=== PATIENT | male | born 1940 | race Caucasian/White ===

== ENCOUNTER 2024-12-16 07:31 | Emergency (ER) | payer MEDICARE, SELFPAY ==
[2024-12-16] VITALS (16 sets, daily range): BP systolic 132–184; BP diastolic 85–106; PULSE 90–118; RESP 11–23; TEMP 36.7–37; O2SAT 93–96; BMI 21.9
--- NOTE | 2024-12-16 07:35 | ECG_ITS ---
APPROVED REPORT Exam: Resting ECG HR:104 bpm ECG Measurements Heart Rate 104 AXES IN 168 P 34 QRSd 81 QRS 2 QT 328 T 4 QTc 388 Conclusion SINUS TACHYCARDIA ABNORMAL RHYTHM ECG UNCONFIRMED REPORT Electronically signed by : FLORENTIN VALVERDE, 12/17/2024 02:23:58
--- NOTE | 2024-12-16 07:45 | PC.NURSE ---
Dr Núñez at bedside
--- NOTE | 2024-12-16 07:53 | ED_ITS ---
Discharge Plan Disposition Chief Complaint: Shortness of Breath/Dyspnea Prescriptions Prescriptions: No Action ondansetron HCl 4 mg tablet 4 mg PO Q6H omeprazole 40 mg capsule,delayed release(DR/EC) 40 mg PO DAILY sennosides [Black-Draught Lax-Senna] 8.6 mg tablet 8.6 mg PO DAILY hydromorphone 2 mg tablet 2 mg PO Q6H Qty: 60 0RF lorazepam 0.5 mg tablet 0.5 mg PO Q6H PRN (Reason: anxiety) Qty: 60 5RF amlodipine 5 mg tablet 5 mg PO DAILY dexamethasone 4 mg tablet 4 mg PO Q6H Referrals Follow up/Referrals: Vinnie Vilchis MD [Primary Care Provider] - See instructions Print Language Print Language: Kiswahili Discharge ED Provider: Johnnie Núñez General Adult HPI General Chief complaint: Shortness of Breath/Dyspnea Stated complaint: SOA Time Seen by Provider: 12/16/24 07:41 History of Present Illness HPI narrative: Andrew Lawson is a 84-year-old male with past medical history of 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 Onset was acute, occurring this morning. Per nursing report patient is normally conversational at bedside, they took him his medication with a cup of water and when they came back 5 minutes later he was wheezing causing him to become concerned and sent here for continued evaluation. No other acute complaints at this time. Upon conversing with the patient he has garbled speech, asking him if his tongue is swollen he states yes . When asked for how long he is unable to answer so when asked for a few days he nods yes. He is intermittently confused and not answering my questions and no other history is able to be obtained at this time. Please note that above description of symptoms, in this electronic medical record under categorization of recalled from ER triage doctor by RN are reflective of an initial nursing assessment, however, is not reflective of my full history and physical exam that was personally taken and clarified. Consequentially, this preceding description of symptoms, which may include the patient's categorized chief complaint in the EMR, do not reflect my personal clinical impression, and the ultimate description of history of present illness and patient stated complaints should be deferred to this section of the note. Unless stated otherwise or congruent with this section of the note, additional signs, symptoms, or incongruence should be interpreted as inaccurate with my clinical impression. Related Data Home Medications ?Medication ?Instructions ?Recorded ?Confirmed omeprazole 40 mg capsule,delayed 40 mg PO DAILY 11/30/24 12/16/24 release ondansetron HCl 4 mg tablet 4 mg PO Q6H 11/30/24 12/16/24 sennosides 8.6 mg tablet 8.6 mg PO DAILY 11/30/24 12/16/24 (Black-Draught Lax-Senna) amlodipine 5 mg tablet 5 mg PO DAILY 12/16/24 12/16/24 dexamethasone 4 mg tablet 4 mg PO Q6H 12/16/24 12/16/24 Previous Rx's ?Medication ?Instructions ?Recorded hydromorphone 2 mg tablet 2 mg PO Q6H #60 tabs 11/30/24 lorazepam 0.5 mg tablet 0.5 mg PO Q6H PRN anxiety #60 tabs 11/30/24 Allergies Allergy/AdvReac Type Severity Reaction Status Date / Time No Known Allergies Allergy Verified 12/02/24 14:50 [facility] Disclaimer: The information contained in this section may have been updated after the patient was seen, as this information can be updated by other users. 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, stage 3b Tubulo-interstitial nephritis, not specified as acute or chronic Other specified noninfective gastroenteritis and colitis Essential (primary) hypertension Cerebral edema Encephalopathy, unspecified Hyperlipidemia, unspecified Malignant neoplasm of overlapping sites of brain Malignant melanoma of skin, unspecified Social History Smoking Status: Never smoker alcohol intake: never current occupational status: previously employed Travel in the last 8 weeks: None Other Medical History Have you received the Pneumonia Vaccine: No (unknown) ROS Obtained: Yes Systems reviewed as appropriate & no additional complaints except as documented Physical Exam General General appearance: other Comment: Arousable to voice Head Head exam: atraumatic and normocephalic Eye Eye exam: Present PERRL ENT ENT exam: Present other (Tongue occupies majority of the mouth and is protruding through the central incisors. No brawny floor the mouth. Mild trismus. [place] edema and bulging between the chin and sternal notch) Neck Neck exam: Present normal inspection Chest Chest inspection: Present normal inspection and symmetric chest wall rise Respiratory Respiratory exam: Present normal lung sounds bilaterally; Absent respiratory distress (Mild tachypnea) or wheezes Cardiovascular Cardiovascular exam: Present normal rhythm and tachycardia Abdominal Exam Abdominal exam: Present soft; Absent tenderness Extremities Exam Extremities exam: Present normal inspection Neurological Exam Neurological exam: Present other (Eyes intermittently open and rousable to voice, intermittently confused, spontaneously moving all extremities) Psychiatric Psychiatric exam: Present other (Delayed answering) Skin Skin exam: Present warm and dry Medical Decision Making Medical Records Screening: Per USPSTF and CDC recommendations, given the prevalence of disease in our region, it is our hospital?s policy to screen for HIV and viral Hepatitis for all patients aged 18 and over and those with ongoing risk factors. Walter Inquiry Pt receiving controlled substance: No Vital Signs: 12/16/24 07:59 12/16/24 08:00 12/16/24 08:22 Temperature 98.6 F Temperature Source Oral Pulse Rate 104 H 115 H Pulse Rate [Right] 104 H Respiratory Rate 20 15 Blood Pressure 147/92 H Blood Pressure [Right Arm] 152/95 H Blood Pressure Mean Blood Pressure Mean [Right Arm] 114 Blood Pressure Source [Right Arm] Automatic Cuff Blood Pressure Position [Right Arm] Supine 02 Sat by Pulse Oximetry 95 95 Oxygen Delivery Method Room Air Room Air Oxygen Flow Rate (LPM) 12/16/24 08:22 12/16/24 08:30 12/16/24 09:01 Temperature Temperature Source Pulse Rate 118 H 101 H 106 H Pulse Rate [Right] Respiratory Rate 13 15 Blood Pressure 132/85 184/106 H Blood Pressure [Right Arm] Blood Pressure Mean 103 Blood Pressure Mean [Right Arm] Blood Pressure Source [Right Arm] Blood Pressure Position [Right Arm] 02 Sat by Pulse Oximetry 95 94 L Oxygen Delivery Method Room Air Oxygen Flow Rate (LPM) 12/16/24 09:22 12/16/24 09:30 12/16/24 10:00 Temperature Temperature Source Pulse Rate 96 H 90 Pulse Rate [Right] Respiratory Rate 13 11 L Blood Pressure 153/93 H 142/89 H Blood Pressure [Right Arm] Blood Pressure Mean 106 Blood Pressure Mean [Right Arm] Blood Pressure Source [Right Arm] Blood Pressure Position [Right Arm] 02 Sat by Pulse Oximetry 95 96 Oxygen Delivery Method Nasal Cannula Room Air Oxygen Flow Rate (LPM) 2 12/16/24 10:30 12/16/24 11:00 12/16/24 11:15 Temperature Temperature Source Pulse Rate 95 H 91 H 99 H Pulse Rate [Right] Respiratory Rate 13 12 13 Blood Pressure 152/95 H 148/95 H 148/95 H Blood Pressure [Right Arm] Blood Pressure Mean 116 Blood Pressure Mean [Right Arm] Blood Pressure Source [Right Arm] Blood Pressure Position [Right Arm] 02 Sat by Pulse Oximetry 96 95 96 Oxygen Delivery Method Nasal Cannula Oxygen Flow Rate (LPM) 12/16/24 11:30 12/16/24 12:00 12/16/24 12:30 Temperature Temperature Source Pulse Rate 97 H 98 H 95 H Pulse Rate [Right] Respiratory Rate 13 13 13 Blood Pressure 135/95 H 150/90 H 139/85 Blood Pressure [Right Arm] Blood Pressure Mean Blood Pressure Mean [Right Arm] Blood Pressure Source [Right Arm] Blood Pressure Position [Right Arm] 02 Sat by Pulse Oximetry 95 94 L 95 Oxygen Delivery Method Room Air Room Air Nasal Cannula Oxygen Flow Rate (LPM) Orders (Tests/Meds): ED MEDICATIONS Discontinued Medications Generic Name Dose Route Start Last Admin Trade Name Freq PRN Reason Stop Dose Admin Epinephrine 0.5 ml 12/16/24 08:06 12/16/24 08:13 Epinephrine 2.25% Neb 0.5ml Ud IH 12/16/24 08:07 0.5 ml ONCE ONE Administration Methylprednisolone Sodium Succinate 125 mg 12/16/24 08:05 12/16/24 08:26 Methylprednisolone Sod Succ 125mg Vial IV 12/16/24 08:06 125 mg ONCE ONE Administration Morphine Sulfate 4 mg 12/16/24 08:05 12/16/24 08:26 Morphine 4mg/Ml Syringe IV 12/16/24 08:06 4 mg ONCE ONE Administration Morphine Sulfate 4 mg 12/16/24 09:19 12/16/24 09:20 Morphine 4mg/Ml Syringe IV 12/16/24 09:20 4 mg ONCE ONE Administration ECG Data Tracing #1: Independently interpreted by me rate is 104, rhythm is regular, axis is normal, no ST elevation in anatomical contiguous leads, QTc 388. Medical Decision Narrative: In summary patient is a 84-year-old male with past medical history described above presents emergency department for evaluation of transfer for wheezing in the setting of diffuse metastatic melanoma. Patient has a large tongue occupying majority of his mouth with a little bit of trismus upon arrival. senior care states he is normally conversational. He has a DNR/DNI signed ordered by healthcare guardian. Given that he is intermittently confused he does not have capacity. I immediately discussed case with Dixie Guadarrama who is healthcare power of city attorney. It turns out that patient has had an abscessed tooth on his right bottom mouth that they have been treating with amoxicillin for the last week. Given this my concern for lingual abscess versus developing Don's is very high. I discussed in no uncertain terms his goals of care give n that he has malignant melanoma. Guardian states that she does not want blood work, does not want imaging, does not want further antibiotics. The only goal is symptomatic control and to keep him comfortable given that he has metastatic melanoma to the brain. I confirmed that if the swelling gets worse it would likely occlude his mouth and ultimately he may quit breathing and , she understands this. Given this patient will continue to be DNR/DNI, no aggressive workup will be given. IV access will be obtained slowly to give steroids in an effort to quell the swelling. Racemic epinephrine will be attempted although unlikely to change things there is no significant perceived harm by doing this. The case was discussed with [facility] regarding management, unfortunately their inpatient unit and [place] is full. Given this I discussed the case with Dionte, [facility] will come later this evening to do their evaluation at [facility]. Dr. Vilchis will bridge narcotic orders for air hunger given that he will need intramuscular, subcutaneous or intravenous medications given rapidly progressive neck swelling and ultimately patient will lose his airway. Patient will be discharged back to the assisted with hospice evaluation at this time. Critical Care Critical Care Time Critical Care Time: Yes Attestation: On 12/16/24, the high probability of a clinically significant, sudden or life threatening deterioration of the following system(s) required my full and direct attention, intervention and personal management. The time I documented below is in addition to time spent performing reported procedures but includes the follow ing listed in this critical care notation. Total Time Total Critical Care Time: 35
--- NOTE | 2024-12-16 08:00 | PC.NURSE ---
Dr Núñez s/w pt's POA/daughter Dixie regarding pt care, treatment, and POC. She confirmed with Dr Núñez & Des Fulton RN/ Christine Malin RN that pt is a DNR/DNI.
[2024-12-16] MEDS: EPINEPHRINE 2.25% NEB 0.5ML UD 0.5 ML IH (08:13)
[2024-12-16] MEDS: MORPHINE 4MG/ML SYRINGE 4 MG IV ×3 (08:26→13:47)
[2024-12-16] MEDS: METHYLPREDNISOLONE SOD SUCC 125MG VIAL 125 MG IV (08:26)
--- NOTE | 2024-12-16 08:29 | PC.NURSE ---
Called Hospice to make referral. Faxed information to Hospice intake @ [phone]
--- NOTE | 2024-12-16 08:45 | PC.NURSE ---
BLOOD CULTURE BLUE BRACELET PLACED ON LEFT WRIST
--- NOTE | 2024-12-16 09:07 | PC.NURSE ---
DNR BRACELET PLACED ON PT LEFT WRIST
--- NOTE | 2024-12-16 09:38 | PC.NURSE ---
AT BS SPEAKING WITH PT FAMILY
--- NOTE | 2024-12-16 11:00 | PC.NURSE ---
Called Hospice for an update on intake. Leann is unavailable at this time but will call back.
--- NOTE | 2024-12-16 11:13 | SW/DCPLANNER ---
Addendum entered by Antonette Cartwright 12/16/24 13:37: Per Brigid goetz/ Hospice the plan for this patient is to return to [facility] w/ Hospice to admit once he returns. Original Note: Brigid goetz/ [facility] has called and requested patient information be faxed. CM will fax information this AM.
--- NOTE | 2024-12-16 11:26 | PC.NURSE ---
dejuan with hospice called to confirm that we did in fact want someone to come and see pt while in the ED
--- NOTE | 2024-12-16 11:33 | PC.NURSE ---
Pt's daughter and family return to bedside. Updated them on POC and hospice information thus far.
--- NOTE | 2024-12-16 12:11 | PC.NURSE ---
[facility] in [facility] reports that hospice will be coming
--- NOTE | 2024-12-16 12:20 | PC.NURSE ---
[facility] does not have contract with [facility]. pts family requesting pt go to [facility] in [place]. This is a different hospice facility.
--- NOTE | 2024-12-16 12:25 | PC.NURSE ---
call made to [facility] in [place]. filiberto took pts information, states that she will give it to intake personnel and have them call back for more information.
--- NOTE | 2024-12-16 12:41 | PC.NURSE ---
spoke with osei at [facility] they state no inpatient bed with hospice unit. they states that [facility] will be taking care of pt at intermediate due to [place] being in [facility]
--- NOTE | 2024-12-16 13:08 | PC.NURSE ---
Called EMS for transport for this pt back to [place].
--- NOTE | 2024-12-16 13:17 | PC.NURSE ---
report called to [facility].
== END 2024-12-16 14:07 | disposition hospice, inpatient (51) ==
PROVIDERS: Emergency Provider Emergency Medicine; PCP Family Medicine
DX: K12.2 Cellulitis and abscess of mouth (principal); R06.02 Shortness of breath; R06.2 Wheezing; R22.0 Localized swelling, mass and lump, head; M26.53 Deviation in opening and closing of the mandible; N18.32 Chronic kidney disease, stage 3b; C71.8 Malignant neoplasm of overlapping sites of brain; C43.9 Malignant melanoma of skin, unspecified
CPT/HCPCS: 93005; 96374; 96375; 96376; 99291; J2270; J2919